=== PATIENT | female | born 1965 | race Caucasian/White ===

== ENCOUNTER 2021-09-16 00:34 | Day surgery (SDC) | payer OTHER, SELFPAY ==
[2021-09-09 14:59] VITALS: BMI 25.7
[2021-09-16 10:44] VITALS: BP 119/95; PULSE 82; RESP 18; TEMP 36.3; O2SAT 100
--- NOTE | 2021-09-16 11:04 | PM.IMHP ---
H&P: HPI History of Present Illness Date/Time: 09/16/21 11:04 Chief Complaint: Neoplasia screening. Narrative: This is a 55-year-old white female patient presents for neoplasia screening colonoscopy. She states her weight appetite bowel movements are normal. She denies any bleeding. . Bowel habits are regular. 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 She also had a history of peptic ulcer disease. During that time. She on her went gastric decompression surgery with gastrojejunostomy. 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 She has done well since that time but continues to be on omeprazole 40mg p.o. daily. If she stops this medicine she notices prompted acid regurgitation. Review of Systems Review of Systems: Review of systems noncontributory. [facility] Family History Family History Father Family history of osteoporosis Patient's father is Family history of rheumatic fever Mother Hypertension Acute myocardial infarction Other Cerebrovascular accident Diabetes mellitus Family history of cardiovascular disease Family history of malignant neoplasm Family history of tuberculosis Social History Social History (Updated 08/31/21 @ 09:37 by Rosette Kay CMA) Smoking status: Never smoker Second hand tobacco smoke exposure: No Alcohol intake: current Alcohol use details: social Substance use: never Living arrangements: with family Spiritual care concerns: No Meds Home Medications and Allergies Home Medications Medication Instructions Recorded Confirmed Type jeovphx-pcbzdglddfobu-vvxesrsj 250 1 tablet PO Q4-6H PRN Migraine 08/31/21 09/09/21 History mg-250 mg-65 mg tablet (Excedrin Headache Migraine) diphenhydramine 25 1 tablet PO QHS PRN Insomnia 08/31/21 09/09/21 History mg-acetaminophen 500 mg tablet (Tylenol PM Extra Strength) naproxen sodium 220 mg tablet 220 mg PO BID PRN Pain 08/31/21 09/09/21 History (Aleve) omeprazole 40 mg capsule,delayed 40 mg PO DAILY #90 caps 08/31/21 09/09/21 Rx release Allergies Allergy/AdvReac Type Severity Reaction Status Date / Time No Known Allergies Allergy Verified 09/16/21 10:43 Vital Signs Vital Signs - 24 hr 09/16/21 10:44 Temperature 97.3 F L Pulse Rate 82 Respiratory Rate 18 Blood Pressure 119/95 H Pulse Oximetry 100 Oxygen Delivery Room Air Exam Narrative: Physical exam reveals patient to be alert. Vital signs stable. HEENT exam is unremarkable. Patient is anicteric. Lungs are clear to auscultation and percussion. Heart is without murmur or extra sounds. Abdominal exam bowel sounds are present soft nontender with no organomegaly. Digital external rectal exam is normal. Assessment and Plan Assessment and plan (1) Encounter for screening colonoscopy: Code(s): Z12.11 - Encounter for screening for malignant neoplasm of colon Status: Acute Assessment and Plan: Patient presents for screening colonoscopy. She has last had a colonoscopy about 10 years ago. Further recommendations will be given after colonoscopy. (2) Annular pancreas: Code(s): Q45.1 - Annular pancreas Status: Acute Assessment and Plan: Patient with an annular pancreas that previously call as to gastric outlet obstruction. Now status post gastrojejunostomy. Appears to be doing well after this. Long-term PPI use advised because of history of peptic ulcer disease in current symptoms which appear consistent with acid reflux.
--- NOTE | 2021-09-16 11:06 | WPDANESEPPF ---
Anes - Initial Pre Proc Eval Procedure: Operation Date: 09/16/21 11:15 Proposed Procedures p Screening Colonoscopy - Piero Faustin MD Date/Time: 09/16/21 11:06 Surgeon: Piero Faustin MD Pre Op Diagnosis: neoplasm screening Patient Data Age: 55 Gender: F Height: 1.63 m Weight: 66.4 kg Last Vital Signs Temp 97.3 F L 09/16/21 10:44 Pulse 82 09/16/21 10:44 Resp 18 09/16/21 10:44 BP 119/95 H 09/16/21 10:44 Pulse Ox 100 09/16/21 10:44 O2 Del Method Room Air 09/16/21 10:44 Allergies Allergy/AdvReac Type Severity Reaction Status Date / Time No Known Allergies Allergy Verified 09/16/21 10:43 Home Medications Medication Instructions Recorded Confirmed Type oecqepw-rpsdylrulknty-qvrpkvzb 250 1 tablet PO Q4-6H PRN Migraine 08/31/21 09/09/21 History mg-250 mg-65 mg tablet (Excedrin Headache Migraine) diphenhydramine 25 1 tablet PO QHS PRN Insomnia 08/31/21 09/09/21 History mg-acetaminophen 500 mg tablet (Tylenol PM Extra Strength) naproxen sodium 220 mg tablet 220 mg PO BID PRN Pain 08/31/21 09/09/21 History (Aleve) omeprazole 40 mg capsule,delayed 40 mg PO DAILY #90 caps 08/31/21 09/09/21 Rx release Patient hx anesthesia problems: none Family hx anesthesia problems: none Results Review: All pre-operative results and documents have been reviewed as part of the pre-operative evaluation. [facility] Family History Family History Father Family history of osteoporosis Patient's father is Family history of rheumatic fever Mother Hypertension Acute myocardial infarction Other Cerebrovascular accident Diabetes mellitus Family history of cardiovascular disease Family history of malignant neoplasm Family history of tuberculosis Social History Social History (Updated 08/31/21 @ 09:37 by Rosette Kay CMA) Smoking status: Never smoker Second hand tobacco smoke exposure: No Alcohol intake: current Alcohol use details: social Substance use: never Living arrangements: with family Spiritual care concerns: No Anes - Eval Final PreProcedure Day of Procedure 09/16/21 11:06 Patient weight: normal Heart: regular rate and rhythm Lungs: clear to auscultation Airway: Mallampati scale class II Neurological: alert and oriented Last oral intake: >/= 8 hours ASA classification: II Emergent: no Anesthetic plan: proceed Anesthesia type and monitoring: general GIVS and standard monitoring Results Review: All pre-operative results and documents have been reviewed as part of the pre-operative evaluation. Informed Consent: The patient's anesthetic plan and its attendant risks and benefits were discussed with the patient/family/POA. Questions were solicited and answers provided to the satisfaction of the patient/family/POA.
[2021-09-16] MEDS: LACTATED RINGERS 1,000 ML 150 ML IV CONT (11:28)
[2021-09-16 11:31] VITALS: BP 97/65; PULSE 79; RESP 17; O2SAT 98
[2021-09-16 11:41] VITALS: BP 119/88; PULSE 80; RESP 15; O2SAT 99
[2021-09-16 11:51] VITALS: BP 122/81; PULSE 72; RESP 23; O2SAT 99
== END 2021-09-16 12:25 | disposition home or self-care (01) ==
PROVIDERS: PCP Family Medicine; Visit Provider Internal Medicine Gastroenterology
PROC: 0DJD8ZZ Inspection of Lower Intestinal Tract, Via Natural or Artificial Opening Endoscopic (ICD-10-PCS; CPT 45378; principal; 2021-09-16 11:15)
DX: Z12.11 Encounter for screening for malignant neoplasm of colon (principal); K64.8 Other hemorrhoids; Q45.1 Annular pancreas; Z87.11 Personal history of peptic ulcer disease; Z93.4 Other artificial openings of gastrointestinal tract status
CPT/HCPCS: 45378; J2001; J2704; J7120

== ENCOUNTER 2025-03-19 01:14 | Day surgery (SDC) | payer OTHER, SELFPAY ==
[2025-02-24 11:07] VITALS: BMI 18.9
[2025-03-19 10:38] VITALS: BP 122/83; PULSE 73; RESP 18; TEMP 36.3; O2SAT 100
[2025-03-19] MEDS: LACTATED RINGERS 1,000 ML 150 ML IV CONT (10:48)
--- NOTE | 2025-03-19 10:54 | P.PNAN_ITS ---
Anes - Initial Pre Proc Eval Procedure: Operation Date: 03/19/25 11:45 Proposed Procedures p Esophagogastroduodenoscopy - Jorge Ball MD Date/Time: 03/19/25 10:54 Surgeon: Jorge Ball MD Pre Op Diagnosis: Gastro-esophageal reflux disease without esophagit Patient Data Age: 59 Gender: F Height: 1.63 m Weight: 50.5 kg Last Vital Signs Temp 97.4 F L 03/19/25 10:38 Pulse 73 03/19/25 10:38 Resp 18 03/19/25 10:38 BP 122/83 03/19/25 10:38 Pulse Ox 100 03/19/25 10:38 O2 Del Method Room Air 03/19/25 10:38 Allergies Allergy/AdvReac Type Severity Reaction Status Date / Time No Known Allergies Allergy Verified 03/19/25 10:36 Home Medications ?Medication ?Instructions ?Recorded ?Confirmed ?Type bkmnshv-uoggizwktxdmi-ddjcnwfw 250 1 tablet PO Q4-6H P RN Migraine 08/31/21 02/24/25 History mg-250 mg-65 mg tablet (Excedrin Headache Migraine) diphenhydramine 25 1 tablet PO QHS PRN Insomnia 08/31/21 02/24/25 History mg-acetaminophen 500 mg tablet (Tylenol PM Extra Strength) naproxen sodium 220 mg tablet 220 mg PO BID PRN Pain 0 08/31/21 02/24/25 History (Aleve) omeprazole 40 mg capsule,delayed 40 mg PO BID #180 cap s 01/19/25 02/24/25 Rx release ferrous sulfate 325 mg (65 mg 325 mg PO BID 02/24/25 1 04/26/24 History iron) tablet (FeroSul) multivitamin (Daily Multi-Vitamin 1 tablet PO DAILY 02/24/25 History tablet) Patient hx anesthesia problems: none Family hx anesthesia problems: none Results Review: All pre-operative results and documents have been reviewed as part of the pre- operative evaluation. [facility] Past Medical History Medical History (Updated 01/14/25 @ 11:34 by Jorge Ball MD) Vomiting Constipation Family History Family History Father Family history of osteoporosis Patient's father is Family history of rheumatic fever Mother Hypertension Acute myocardial infarction Other Cerebrovascular accident Diabetes mellitus Family history of cardiovascular disease Family history of malignant neoplasm Family history of tuberculosis Social History Social History Smoking status: Never smoker Second hand tobacco smoke exposure: No Alcohol intake: never Alcohol use details: social Substance use: never Substance use type: does not use Lack of Transportation: No Lack of Food: Never True Current Housing: I Have Housing Concerned About Future Housing: No Difficulty Paying Gas/Electric Bills: No Difficulty Paying for Meds: No Currently Unemployed: No Education: Don't Know Difficulty w/ Childcare or Family Care: No Living arrangements: with family Spiritual care concerns: No Anes - Eval Final PreProcedure Day of Procedure 03/19/25 10:54 Patient weight: normal Heart: regular rate and rhythm Lungs: clear to auscultation Airway: Mallampati scale class II Neurological: alert and oriented Last oral intake: >/= 8 hours ASA classification: II Emergent: no Anesthetic plan: proceed Anesthesia type and monitoring: general GIVS and standard monitoring Results Review: All pre-operative results and documents have been reviewed as part of the pre- operative evaluation. Informed Consent: The patient's anesthetic plan and its attendant risks and benefits were discussed with the patient/family/POA. Questions were solicited and answers provided to the satisfaction of the patient/family/POA.
--- NOTE | 2025-03-19 11:05 | PM.HPGS ---
History of Present Illness History of Present Illness Consent: Risks, benefits, and alternatives have been discussed and questions answered. Patient agrees to proceed with procedure. Chief complaint: Gastro-esophageal reflux disease without esophagit Narrative: Kirstie Teresa is a 59 year old female here for another egd. 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 Lately with more nausea. Review of Systems Review of Systems: All systems reviewed & are unremarkable except as noted in HPI and below PMFSH Past Medical History Medical History (Updated 03/19/25 @ 11:10 by Jorge Ball MD) Nausea Vomiting Constipation Surgical History Surgical History (Updated 03/19/25 @ 11:10 by Jorge Ball MD) Hx of bypass gastrojejunostomy Family History Family History Father Family history of osteoporosis Patient's father is Family history of rheumatic fever Mother Hypertension Acute myocardial infarction Other Cerebrovascular accident Diabetes mellitus Family history of cardiovascular disease Family history of malignant neoplasm Family history of tuberculosis Social History Social History Smoking status: Never smoker Second hand tobacco smoke exposure: No Alcohol intake: never Alcohol use details: social Substance use: never Substance use type: does not use Lack of Transportation: No Lack of Food: Never True Current Housing: I Have Housing Concerned About Future Housing: No Difficulty Paying Gas/Electric Bills: No Difficulty Paying for Meds: No Currently Unemployed: No Education: Don't Know Difficulty w/ Childcare or Family Care: No Living arrangements: with family Spiritual care concerns: No Meds Home Medications and Allergies Home Medications ?Medication ?Instructions ?Recorded ?Confirmed ?Type xfzltlw-icoiglijyuakf-ynmadmlc 250 1 tablet PO Q4-6H PRN Migraine 08/31/21 02/24/25 History mg-250 mg-65 mg tablet (Excedrin Headache Migraine) diphenhydramine 25 1 tablet PO QHS PRN Insomnia 08/31/21 02/24/25 History mg-acetaminophen 500 mg tablet (Tylenol PM Extra Strength) naproxen sodium 220 mg tablet 220 mg PO BID PRN Pain 08/31/21 02/24/25 History (Aleve) omeprazole 40 mg capsule,delayed 40 mg PO BID #180 caps 01/19/25 02/24/25 Rx release ferrous sulfate 325 mg (65 mg 325 mg PO BID 02/24/25 02/24/25 History iron) tablet (FeroSul) multivitamin (Daily Multi-Vitamin 1 tablet PO DAILY 02/24/25 02/24/25 History tablet) Allergies Allergy/AdvReac Type Severity Reaction Status Date / Time No Known Allergies Allergy Verified 03/19/25 10:36 Vital Signs Vital Signs - 24 hr 03/19/25 10:38 Temperature 97.4 F L Pulse Rate 73 Respiratory Rate 18 Blood Pressure 122/83 Pulse Oximetry 100 Oxygen Delivery Room Air Exam Const: General: comfortable and no acute distress HENMT: Face/Nose/Sinus: Normal nares present Eyes: General: appearance normal, both eyes and all related structures Resp: Auscultation: clear to auscultation bilaterally Cardio: Rate: regular rate Rhythm: regular rhythm GI: Inspection: non-distended GI Palp: Yes Soft to palpation Skin: General skin exam: normal color Extrem: General: normal to inspection Psych: Mental Status: mental status grossly normal Assessment and Plan Assessment and plan (1) Nausea: Code(s): R11.0 - Nausea Status: Acute Assessment and Plan: egd to assess (2) Hx of bypass gastrojejunostomy: Code(s): Z98.0 - Intestinal bypass and anastomosis status Status: Acute
--- NOTE | 2025-03-19 11:08 | S_PTH ---
PATIENT: Kirstie Teresa LOC: [facility] Ko#:[id number] AGE/SX: 59/F ROOM: RE03/19/[address]: Jorge Ball MD : 1965 BED: DIS: 03/19/2025 SPEC #: [id number] RECD: 03/19/25 11:58 STATUS: JOSUÉ REQ #: [id number] RAHEEM: 03/19/25 11:[address]: Jorge Ball DEPT: [facility] Surgical RECD BY: Stephanie Daniel ENTERED: 03/19/25 11:59 SP TYPE: Surgical OTHR DR: Isabela Hedrick, Tissues: A - Gastric Biopsy Procedures: Hematoxylin and Eosin Stain Gross and Microscopic Level 4
[2025-03-19 11:11] VITALS: BP 85/57; PULSE 72; RESP 23; O2SAT 100
[2025-03-19 11:21] VITALS: BP 100/71; PULSE 76; RESP 20; O2SAT 100
[2025-03-19 11:31] VITALS: BP 109/72; PULSE 72; RESP 13; O2SAT 100
== END 2025-03-19 11:50 | disposition home or self-care (01) ==
PROVIDERS: PCP Family Medicine; Referring Provider Internal Medicine Gastroenterology; Visit Provider Internal Medicine Gastroenterology
PROC: 0DJ08ZZ Inspection of Upper Intestinal Tract, Via Natural or Artificial Opening Endoscopic (ICD-10-PCS; CPT 43239; principal; 2025-03-19 11:45)
DX: K21.9 Gastro-esophageal reflux disease without esophagitis (principal); K29.50 Unspecified chronic gastritis without bleeding; R11.0 Nausea; Z98.0 Intestinal bypass and anastomosis status; K31.84 Gastroparesis
CPT/HCPCS: 43239; 88305; J2704; J7120